=== PATIENT | female | born 1970 | race African-American/Black ===

== ENCOUNTER 2025-01-12 22:03 | Emergency (ER) | payer OTHER, SELFPAY ==
--- NOTE | ~2025-01-12 | XR_ITS ---
CHEST RADIOGRAPH CLINICAL HISTORY: cough . COMPARISON: None available TECHNIQUE: Single portable view of the chest. FINDINGS Left atrial enlargement is suspected. The remainder of the cardiomediastinal silhouette is otherwise unremarkable. Trace peribronchial thickening. The remainder of the lungs are clear. IMPRESSION: Trace peribronchial thickening, without focal infiltrate or effusion. Reviewed, dictated and finalized at location A.
[2025-01-12 22:09] VITALS: BP 117/65; PULSE 67; RESP 18; TEMP 36.3; O2SAT 100
[2025-01-13] MEDS: AZITHROMYCIN 500 MG TABLET PO (00:13)
--- NOTE | 2025-01-13 03:01 | ED.URI ---
HPI - URI/Sore Throat General Chief Complaint: Upper Respiratory Infection Stated Complaint: productive cough Time Seen by Provider: 01/12/25 23:17 History of Present Illness HPI Narrative: Patient with smoking history presents with 4 days of productive cough, she thinks that she may have been exposed to mold, she does smoke and she has used albuterol inhalers in the past. No chest pain or shortness of breath Related Data Allergies Allergy/AdvReac Type Severity Reaction Status Date / Time Penicillins Allergy RASH Verified 01/12/25 22:16 Review of Systems Review of Systems: All systems reviewed & are unremarkable except as noted in HPI and below Exam Narrative: EXAMINATION OF ORGAN SYSTEMS/BODY AREAS: Constitutional: Vital signs per nursing GENERAL:[No acute distress, non-toxic appearing.] HEAD: Normal with no signs of head trauma. EYES: EOMI, conjunctiva normal ENT: Hearing grossly intact LUNGS: Nonlabored breathing. Slightly diminished lung sounds with some slight wheezing bilaterally HEART: [Regular rate and rhythm] ABD: [Soft], [nontender to palpation] EXT: Normal range of motion SKIN: [No rashes or lesions.] NEURO: [Alert and oriented x 3. No gross focal sensory or strength deficits.] PSYCH: Normal affect Course Vital Signs Vital signs: Vital Signs Temperature 97.4 F L 01/12/25 22:09 Pulse Rate 67 01/12/25 22:09 Respiratory Rate 18 01/12/25 22:09 Blood Pressure 117/65 01/12/25 22:09 Pulse Oximetry 100 01/12/25 22:09 Oxygen Delivery Room Air 01/12/25 22:09 Temperature 97.4 F L 01/12/25 22:09 Pulse Rate 67 01/12/25 22:09 Respiratory Rate 18 01/12/25 22:09 Blood Pressure 117/65 01/12/25 22:09 Pulse Oximetry 100 01/12/25 22:09 Oxygen Delivery Room Air 01/12/25 22:09 MDM - URI/Sore Throat MDM Narrative Medical decision making narrative: 54F h/o smoking p/w productive cough x4d. Some diminished lung sounds + wheeze. CXR on my independent interpretation with some bilateral opacities; possible atypical pna pattern? I suspect given patient's symptoms and smoking history, and exam, acute bronchitis. Will start her on antibiotics, albuterol. Discharge Plan Discharge Clinical Impression: Acute bronchitis Patient Disposition: Home Condition: Stable Instructions: Antibiotic Form, Acute Bronchitis (ED) Additional Instructions: Please follow up with your doctor; take the medications as prescribed, please stop smoking. You can always return for any further issues. Patient Language: Cymraes Prescriptions: New azithromycin 250 mg tablet 250 mg PO DAILY 4 Days Qty: 4 0RF Rx Instructions: start on day 2 of therapy albuterol sulfate 90 mcg/actuation HFA aerosol inhaler 2 puff inhalation QID PRN (Reason: shortness of breath or wheezing) Qty: 8.5 0RF fluticasone propionate [Allergy Relief (fluticasone)] 50 mcg/actuation spray,suspension 1 spray intranasal DAILY Qty: 16 0RF Rx Instructions: administer into each nostril Follow-up/Referrals: PHYSICIAN,[facility] [employer]UC[employer] TE[employer]ER [Primary Care Provider] -
== END 2025-01-13 00:26 | disposition home or self-care (01) ==
PROVIDERS: Emergency Provider Emergency Medicine
DX: J20.9 Acute bronchitis, unspecified (principal)
CPT/HCPCS: 71045; 99283